=== PATIENT | male | born 1985 | race Two or more races ===

== ENCOUNTER 2024-07-01 16:37 | Emergency (ER) | payer OTHER ==
[~2024-07-01] VITALS: Ht 167.6 cm; Wt 84.9 kg
--- NOTE | 2024-07-01 17:15 | ED.PDOC ---
Eye-HPI HPI Comments A 38-year-old male [place] he went out to dinner the wind was blowing he felt like something went into his left eye since then it has been very irritated. He states his eye was tearing the whole night and he has had some drainage.. Chief Complaint: Eye Problem Time Seen by MD: 17:10 Primary Care Provider: MIKEY Evans Notes: Medications Allergies: Coded Allergies: NO KNOWN ALLERGIES (Unverified , 07/08/15) Information Source: Patient Mode of Arrival: Ambulatory Past Medical History PAST MEDICAL HISTORY: Denies Surgical History: Denies all surgeries Family History Family History: Unobtainable Social History Smoker: Non-Smoker Alcohol: Denies ETOH Use Drugs: Denies Drug Use Lives In: Home EENTM: reports: eye pain, eye redness All Other Systems: Reviewed and Negative Physical Exam General Appearance: No Apparent Distress, Normal HEENT: PERRL/EOMI, Pharynx Normal, TMs Normal Neck: Non-Tender, Normal Inspection, Supple Respiratory: Lungs Clear, Normal Breath Sounds Cardiovascular: Normal Peripheral Pulses, Regular Rate/Rhythm Breast Exam: Deferred Gastrointestinal: Non Tender, Soft Genitalia: Deferred Pelvic: Deferred Rectal: Deferred Extremities: Normal capillary refill, Normal inspection, Normal range of motion Neurologic: Alert, Normal Affect, No Sensory Deficits Cerebellar Function: NOT DONE Reflexes: NOT DONE Skin: Dry, Warm Lymphatic: No Adenopathy Was a procedure done? Was a procedure done?: Yes Sedation Sedation?: No Informed consent obtained: Yes (verbal) Other Procedure Procedure szymanski lamp Indication Left eye pain Anesthetic Tetracaine eyedrops Prep Fluorescein stain was put in the eye and visualized with a Wood's lamp. Success Corneal abrasion, no foreign body found no laceration, no hyphema Informed consent obtained: Yes Risks, benefits, and alternati: Yes EENT DIFF Eye: Chalazion, Corneal Abrasion X-Ray, Labs, Meds, VS Vital Signs Date Time Temp Pulse Resp B/P (MAP) Pulse Ox O2 Delivery O2 Flow Rate FiO2 07/01/24 16:56 98.4 80 16 125/82 (96) 97 98.4 X-Ray, Labs, Meds, VS Comment Patient seen and examined by me. Patient did have a possible foreign body in his eye there is no foreign body found he does have a secondary conjunctivitis that I will not treat with antibiotics.. Time of 1ST Reevaluation: 17:28 Reevaluation 1ST: Improved Patient Education/Counseling: Diagnosis, Treatment, Prognosis, Need For Follow Up Family Education/Counseling: No Family Present Departure 1 Departure Time of Disposition: 17:28 Impression: Primary Impression: Conjunctivitis Disposition: HOME / SELF CARE / HOMELESS Condition: Good Additional Instructions: Use the eyedrops as directed for the next 5 days Do not rub your eye If you still have pain after you can follow up with an eye doctor e-Prescriptions Tobramycin-Dexamethasone (Tobramycin/Dexamethasone) Dexameth Malissa 1 DROP LEFTEYE QID for 5 Days, #5 ML Prov: GRAHAM HICKS 07/01/24 Discharged With: Self Critical Care Note Critical Care Time?: No Stability Stability form required: GRAHAM Schmitz July 01, 2024 17:15
[2024-07-01] MEDS ORDERED: TOBRSUS34 LEFTEYE (17:30)
[2024-07-01] MEDS: FLUORESCEIN SOD OPTH TEST STRIP LEFTEYE ONE (17:35)
[2024-07-01] MEDS: TETRACAINE HCL 0.5% OPTH(EYE) SOLN 4ML LEFTEYE ONE (17:35)
[2024-07-01 17:45] VITALS: BP 125/82; PULSE 78; RESP 16; TEMP 97.9; O2SAT 98
== END 2024-07-01 17:59 | disposition home or self-care (01) ==
LOC: ER 16:43
DX: H10.9 Unspecified conjunctivitis (principal); H57.12 Ocular pain, left eye